=== PATIENT | male | born 2000 | race Caucasian/White ===

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

== ENCOUNTER 2021-11-10 11:36 | Outpatient (CLI) | payer BC ==
[2021-11-11] LABS: SARS-CoV-2 PCR by NAA Not Detected (NotDetected)
== END 2021-11-10 11:37 | disposition home or self-care (01) ==
LOC: LABBT 11:36
PROVIDERS: ATTEND Specialist
DX: B49 Unspecified mycosis (principal); J33.9 Nasal polyp, unspecified; R09.81 Nasal congestion; R51.9 Headache, unspecified; Z20.822 Contact with and (suspected) exposure to COVID-19
CPT/HCPCS: U0003; U0005

== ENCOUNTER 2021-11-13 09:56 | Day surgery (SDC) | payer BC ==
[2021-11-12 11:08] VITALS: BMI 26.4
[2021-11-13] MEDS ORDERED: AFRIN NASAL MIST 15 ML BOT ONE ×2 (10:34→11:28)
[2021-11-13] MEDS ORDERED: Lidocaine 1% w/Epinephrine 1:100K 20 ML VIAL ONE (11:28)
[2021-11-13] MEDS ORDERED: Famotidine/PF 20 mg/2ml Vial ONE (11:35)
[2021-11-13] MEDS ORDERED: SUGAMMADEX SODIUM 200 MG/2 ML VIAL ONE (11:35)
[2021-11-13] MEDS ORDERED: fentaNYL Citrate/PF 100 MCG/2 ML SYRINGE ONE ×2 (11:35)
[2021-11-13] MEDS ORDERED: Meperidine HCl/PF 25 MG/ML VIAL ONE (11:35)
[2021-11-13] MEDS ORDERED: EPINEPHrine 1 MG/ML AMP ONE (11:57)
[2021-11-13] MEDS ORDERED: Triamcinolone 40 MG/ML VIAL ONE (12:10)
[2021-11-13] MEDS ORDERED: Fentanyl 100 MCG/2 ML VIAL ONE (12:54)
== END 2021-11-13 15:10 | disposition home or self-care (01) ==
LOC: SDC 09:56
PROVIDERS: ATTEND Specialist
PROC: 09BQ8ZZ Excision of Right Maxillary Sinus, Via Natural or Artificial Opening Endoscopic (ICD-10-PCS; principal; 2021-11-13)
PROC: 09TV8ZZ Resection of Left Ethmoid Sinus, Via Natural or Artificial Opening Endoscopic (ICD-10-PCS; principal; 2021-11-13)
PROC: 8E09XBZ Computer Assisted Procedure of Head and Neck Region (ICD-10-PCS; principal; 2021-11-13)
PROC: 09BX8ZZ Excision of Left Sphenoid Sinus, Via Natural or Artificial Opening Endoscopic (ICD-10-PCS; principal; 2021-11-13)
PROC: 099T8ZZ Drainage of Left Frontal Sinus, Via Natural or Artificial Opening Endoscopic (ICD-10-PCS; principal; 2021-11-13)
PROC: 09SL8ZZ Reposition Nasal Turbinate, Via Natural or Artificial Opening Endoscopic (ICD-10-PCS; principal; 2021-11-13)
PROC: 099S8ZZ Drainage of Right Frontal Sinus, Via Natural or Artificial Opening Endoscopic (ICD-10-PCS; principal; 2021-11-13)
PROC: 09BR8ZZ Excision of Left Maxillary Sinus, Via Natural or Artificial Opening Endoscopic (ICD-10-PCS; principal; 2021-11-13)
PROC: 09TU8ZZ Resection of Right Ethmoid Sinus, Via Natural or Artificial Opening Endoscopic (ICD-10-PCS; principal; 2021-11-13)
PROC: 09BW8ZZ Excision of Right Sphenoid Sinus, Via Natural or Artificial Opening Endoscopic (ICD-10-PCS; principal; 2021-11-13)
DX: J32.4 Chronic pansinusitis (principal); J33.8 Other polyp of sinus; J30.89 Other allergic rhinitis; B48.8 Other specified mycoses; Z79.899 Other long term (current) drug therapy
CPT/HCPCS: J0171; J2175; J3010; J3301; S0028